=== PATIENT | male | born 1980 | race Caucasian/White ===

== ENCOUNTER 2017-02-17 14:42 | Observation (INO) | payer MEDICAID ==
[~2017-02-17] VITALS: Ht 185.4 cm; Wt 127.0 kg
[2017-02-17 16:02] LABS: Urine RBC None Seen /hpf (0 - 3)
[2017-02-17 16:08] LABS: Urine Bilirubin Negative (Negative); Urine Blood Negative /uL (Negative); Urine Color Yellow (Yellow); Urine Glucose 4+ mg/dL (Normal); Urine Ketone Negative (Negative); Urine Nitrite Negative (Negative); Urine Squamous Epithelial Cell FEW /hpf (<5); Urine Urobilinogen Normal (Negative)
[2017-02-17 17:02] LABS: Basophils # (auto) 0 uL; Basophils % (auto) 0.4 % (0.0-2.0); CONDITION Y; Eosinophils # (auto) 0.3 uL; Eosinophils % (auto) 3.4 % (0.0-7.0); Hematocrit 47.3 % (41.0-53.0); Hemoglobin 16.2 g/dL (13.5-17.5); Lymphocytes # (auto) 2.8 uL; Lymphocytes % (auto) 36.3 % (10.0-50.0); Mean Corpuscular Hemoglobin 29.1 pg (28.0-32.0); Mean Corpuscular Hgb Conc. 34.3 g/dL (32.0-36.0); Mean Corpuscular Volume 84.8 fL (80.0-100.0); Mean Platelet Volume 11.2 fL (6.9-10.8); Monocytes # (auto) 0.7 uL; Monocytes % (auto) 9.5 % (0.0-12.0); Neutrophils # (auto) 3.9 uL; Neutrophils % (auto) 50.4 % (37.0-80.0); Platelet Count (auto) 202 10^3/uL (140-450); Red Cell Distribution Width 13.4 % (11.8-14.3); White Blood Cell 7.6 10^3/uL (4.4-10.8)
[2017-02-17 17:25] LABS: BUN/Creatinine Ratio 10.6; Calcium 9.2 mg/dL (8.5-10.1); Potassium 3.9 mmol/L (3.5-5.1)
[2017-02-17 17:28] LABS: Bilirubin, Total 0.5 mg/dL (0.2-1.0); Total Protein 7.8 g/dL (6.4-8.2)
[2017-02-17] MEDS ORDERED: SODIUM CHLORIDE 0.9% 1,000 ML IVB ONE (20:10)
[2017-02-17] MEDS ORDERED: KETOROLAC TROMETH 30 MG/ML 1ML VIAL IV ONE (20:15)
[2017-02-17] MEDS ORDERED: ONDANSETRON HCL 4 MG/2 ML VIAL IV ONE (20:15)
[2017-02-17 20:49] LABS: INR 0.96 (0.9-1.15); Partial Thromboplastin Time 25.4 sec (22.64-33.71); Prothrombin Time 10.5 sec (9.37-12.3)
[2017-02-17 20:59] LABS: Magnesium 2.4 mg/dL (1.6-2.6)
[2017-02-17 21:58] VITALS: BP 152/92
== END 2017-02-17 23:20 | disposition home or self-care (01) | DRG 251 ==
LOC: ER 14:56 → OVERFLOW 20:15 → ER 23:20
PROVIDERS: ADMIT Family Medicine; ATTEND Family Medicine
DX: R10.9 Unspecified abdominal pain (principal); E11.65 Type 2 diabetes mellitus with hyperglycemia; I10 Essential (primary) hypertension; R11.0 Nausea; M51.36 Other intervertebral disc degeneration, lumbar region; E78.5 Hyperlipidemia, unspecified; Z82.49 Family history of ischemic heart disease and other diseases of the circulatory system; Z83.3 Family history of diabetes mellitus
CPT/HCPCS: 36415; 71010; 74176; 80053; 81001; 82150; 82962; 83690; 83735; 85025; 85610; 85730; 96361; 96374; 96375; 99285; G0378; J1885; J2405; J7030

== ENCOUNTER 2017-07-28 11:08 | Emergency (ER) | payer MEDICAID ==
[~2017-07-28] VITALS: Ht 185.4 cm; Wt 124.7 kg
[2017-07-28 11:17] VITALS: BP 152/91
== END 2017-07-28 12:17 | disposition home or self-care (01) ==
LOC: ER 11:08
DX: L02.214 Cutaneous abscess of groin (principal); Z48.01 Encounter for change or removal of surgical wound dressing
CPT/HCPCS: 82962

== ENCOUNTER 2019-07-02 15:43 | Emergency (ER) | payer MEDICAID ==
[~2019-07-02] VITALS: Ht 185.4 cm; Wt 116.1 kg
[2019-07-02 16:00] VITALS: BP 153/98
[2019-07-02] MEDS ORDERED: KETOROLAC TROMETH 60MG/2ML VIAL IM ONE (16:45)
[2019-07-02] MEDS ORDERED: cefTRIAXone SOD 1,000 MG VL IM ONE (16:45)
== END 2019-07-02 17:22 | disposition home or self-care (01) ==
LOC: ER 15:43
DX: M54.41 Lumbago with sciatica, right side (principal); H66.92 Otitis media, unspecified, left ear; E11.9 Type 2 diabetes mellitus without complications; E78.5 Hyperlipidemia, unspecified; I10 Essential (primary) hypertension
CPT/HCPCS: 96372; 99283; J0696; J1885

== ENCOUNTER 2019-07-06 02:51 | Emergency (ER) | payer MEDICAID ==
[~2019-07-06] VITALS: Ht 185.4 cm; Wt 116.1 kg
[2019-07-06 04:58] VITALS: BP 153/85
[2019-07-06] MEDS ORDERED: KETOROLAC TROMETH 60MG/2ML VIAL IM ONE (05:00)
[2019-07-06] MEDS ORDERED: cefTRIAXone SOD 1,000 MG VL IM ONE (05:00)
== END 2019-07-06 06:09 | disposition home or self-care (01) ==
LOC: ER 02:53
DX: H66.92 Otitis media, unspecified, left ear (principal); H60.92 Unspecified otitis externa, left ear; E11.9 Type 2 diabetes mellitus without complications; E78.5 Hyperlipidemia, unspecified; I10 Essential (primary) hypertension
CPT/HCPCS: 82962; 96372; 99283; J0696; J1885

== ENCOUNTER 2019-07-15 16:16 | Emergency (ER) | payer MEDICAID ==
[~2019-07-15] VITALS: Ht 188 cm; Wt 116.1 kg
[2019-07-15 17:02] VITALS: BP 144/86
== END 2019-07-15 17:38 | disposition home or self-care (01) ==
LOC: ER 16:16
DX: H66.93 Otitis media, unspecified, bilateral (principal); E11.9 Type 2 diabetes mellitus without complications; E78.5 Hyperlipidemia, unspecified; I10 Essential (primary) hypertension

== ENCOUNTER 2020-02-27 09:24 | Emergency (ER) | payer MEDICAID ==
[~2020-02-27] VITALS: Ht 185.4 cm; Wt 122.5 kg
[2020-02-27 09:36] VITALS: BP 123/93
[2020-02-27] MEDS ORDERED: KETOROLAC TROMETH 60MG/2ML VIAL IM ONE (11:00)
== END 2020-02-27 11:15 | disposition home or self-care (01) ==
LOC: ER 09:24
DX: S22.31XA Fracture of one rib, right side, initial encounter for closed fracture (principal); I10 Essential (primary) hypertension; E11.9 Type 2 diabetes mellitus without complications; E78.5 Hyperlipidemia, unspecified; X50.9XXA Other and unspecified overexertion or strenuous movements or postures, initial encounter; Y93.89 Activity, other specified; Y92.89 Other specified places as the place of occurrence of the external cause; Y99.8 Other external cause status
CPT/HCPCS: 71101; 96372; 99283; J1885

== ENCOUNTER 2020-11-09 06:47 | Emergency (ER) | payer MEDICAID ==
[~2020-11-09] VITALS: Ht 185.4 cm; Wt 111.1 kg
[2020-11-09 07:32] VITALS: BP 133/91
[2020-11-09] MEDS ORDERED: KETOROLAC TROMETH 60MG/2ML VIAL IM ONE (08:15)
== END 2020-11-09 08:47 | disposition home or self-care (01) ==
LOC: ER 06:47
DX: M17.12 Unilateral primary osteoarthritis, left knee (principal); I10 Essential (primary) hypertension; E11.9 Type 2 diabetes mellitus without complications; E78.5 Hyperlipidemia, unspecified
CPT/HCPCS: 73562; 96372; 99283; J1885

== ENCOUNTER 2021-02-23 11:33 | Emergency (ER) | payer MEDICAID ==
[~2021-02-23] VITALS: Ht 185.4 cm; Wt 111.1 kg
[2021-02-23 12:08] VITALS: BP 119/78
== END 2021-02-23 13:22 | disposition home or self-care (01) ==
LOC: ER 11:33
DX: S86.912A Strain of unspecified muscle(s) and tendon(s) at lower leg level, left leg, initial encounter (principal); E11.9 Type 2 diabetes mellitus without complications; I10 Essential (primary) hypertension; E78.5 Hyperlipidemia, unspecified; X50.1XXA Overexertion from prolonged static or awkward postures, initial encounter; Y93.89 Activity, other specified; Y92.89 Other specified places as the place of occurrence of the external cause; Y99.8 Other external cause status
CPT/HCPCS: 93971

== ENCOUNTER 2023-01-06 08:22 | Emergency (ER) | payer MEDICAID ==
[~2023-01-06] VITALS: Ht 185.4 cm; Wt 111.0 kg
[2023-01-06 08:48] VITALS: BP 158/77; PULSE 83; RESP 18; TEMP 97.6; O2SAT 97
== END 2023-01-06 10:29 | disposition home or self-care (01) ==
LOC: ER 08:22
DX: S90.212A Contusion of left great toe with damage to nail, initial encounter (principal); I10 Essential (primary) hypertension; E11.9 Type 2 diabetes mellitus without complications; E78.5 Hyperlipidemia, unspecified; X58.XXXA Exposure to other specified factors, initial encounter; Y93.89 Activity, other specified; Y92.89 Other specified places as the place of occurrence of the external cause; Y99.8 Other external cause status
CPT/HCPCS: 73630